=== PATIENT | female | born 1990 ===

== ENCOUNTER 2022-09-01 09:45 | Outpatient (CLI) | payer OTHER ==
[~2022-09-01 09:45] MED LIST: NO TOMA MED
== END 2022-09-01 12:19 | disposition home or self-care (01) ==
LOC: PRENATAL 09:45
PROVIDERS: ATTEND Obstetrics & Gynecology Maternal & Fetal Medicine
DX: O35.9XX0 Maternal care for (suspected) fetal abnormality and damage, unspecified, not applicable or unspecified (principal); O35.3XX0 Maternal care for (suspected) damage to fetus from viral disease in mother, not applicable or unspecified; Z3A.24 24 weeks gestation of pregnancy